=== PATIENT | female | born 1970 | race Caucasian/White ===

== ENCOUNTER → 2018-10-19 11:13 | Outpatient (CLI) | payer OTHER, SELFPAY ==
--- NOTE | 2018-10-19 | DI.MG.S_ITS ---
BILATERAL DIGITAL SCREENING MAMMOGRAM 3D/2D WITH CAD: 10/19/2018 CLINICAL: Routine screening. Family history of breast cancer. Comparison is made to exams dated: 03/01/2013 mammogram and 07/12/2004 mammogram - [facility]. The tissue of both breasts is heterogeneously dense. This may lower the sensitivity of mammography. Current study was also evaluated with a Computer Aided Detection (CAD) system. No significant masses, calcifications, or other findings are seen in either breast. There has been no significant interval change. IMPRESSION: NEGATIVE There is no mammographic evidence of malignancy. A 1 year screening mammogram is recommended. This exam was interpreted at Station ID: [id number]. NOTE: For mammograms, a report in lay terms will be sent to the patient. Approximately 15% of breast malignancies will not be visualized mammographically. In the management of a palpable breast mass, a negative mammogram must not discourage biopsy of a clinically suspicious lesion. Electronically Signed By: Antwon kelley/salma:10/19/2018 16:22:52 letter sent: Normal Exam ACR BI-RADS Category 1: Negative 3341F
== END ==
PROVIDERS: Family Provider Family Medicine; PCP Student in an Organized Health Care Education/Training Program; Visit Provider Student in an Organized Health Care Education/Training Program
DX: Z12.31 Encounter for screening mammogram for malignant neoplasm of breast (principal); Z80.3 Family history of malignant neoplasm of breast
CPT/HCPCS: 77063; 77067

== ENCOUNTER → 2019-03-11 09:10 | Outpatient (CLI) | payer OTHER, SELFPAY ==
--- NOTE | 2019-03-11 09:12 | DI.US.S_ITS ---
LIMITED ULTRASOUND OF LEFT BREAST: 03/11/2019 CLINICAL: Palpable left breast lump. Comparison is made to exams dated: 03/01/2013 mammogram, 03/01/2013, and 10/19/2018 mammogram - [facility]. Color flow and real-time ultrasound of the left breast 7-9 o'clock region were performed. Sherman scale images of the real-time examination were reviewed. There is a 1.9 cm x 2.1 cm x 0.9 cm wider than tall cluster of irregular complicated cysts with a septated, thickened internal wall in the left breast at 8 o'clock anterior depth. This cluster of irregular complicated cysts is of mixed echogenicity and may include solid components with vascular flow. These abnormalities represents a change from the prior ultrasound, where a simple cyst in this exact location was found with surrounding microcysts. This also correlates as palpated and is a location of recent trauma. IMPRESSION: PROBABLY BENIGN The 1.9 cm x 2.1 cm x 0.9 cm irregular complicated mixed cystic and possibly solid lesion in the left breast is likely a decompressed cyst, possibly hematoma with adjacent complicated cysts and is probably benign. The recent mammogram has no correlate in this location. Follow-up left mammogram and ultrasound in 3 months is recommended. Findings and recommendations were conveyed to the patient at time of exam. This exam was interpreted at Station ID: [id number]. Electronically Signed By: Marianna kaminski/:03/11/2019 11:04:26 letter sent: Followup Recommended Ultrasound BI-RADS: 3 Probably benign
== END ==
PROVIDERS: PCP Student in an Organized Health Care Education/Training Program; Visit Provider Registered Nurse
DX: N63.24 Unspecified lump in the left breast, lower inner quadrant (principal)
CPT/HCPCS: 76642

== ENCOUNTER → 2019-06-17 12:24 | Outpatient (CLI) | payer OTHER, SELFPAY ==
--- NOTE | 2019-06-17 12:27 | DI.US.S_ITS ---
LIMITED ULTRASOUND OF LEFT BREAST: 06/17/2019 CLINICAL: 3 month follow-up of complicated cyst. Comparison is made to exams dated: 06/17/2019 mammogram, 03/11/2019 ultrasound, 10/19/2018 mammogram, 03/01/2013 mammogram, 03/01/2013, and 07/12/2004 mammogram - [facility]. Color flow and real-time ultrasound of the left breast 8 o'clock region were performed. Sherman scale images of the real-time examination were reviewed. There is a 2.4 cm x 0.8 cm x 1.9 cm oval area of fibrocystic tissue in the left breast at 8 o'clock in the retroareolar region with the long axis parallel to the skin. This area of tissue displays no posterior acoustic shadowing or enhancement. This abnormality is not significantly changed. Color flow imaging demonstrates that there is no vascularity present. IMPRESSION: PROBABLY BENIGN The 2.4 cm oval area of fibrocystic tissue in the left breast is probably benign. A follow-up left ultrasound in 6 months is recommended to demonstrate stability. Findings and recommendations were conveyed to the patient at time of exam. This exam was interpreted at Station ID: [id number]. Electronically Signed By: Marianna kaminski/:06/17/2019 13:35:32 copy to: VIRIDIANA FRYE letter sent: Followup Recommended Ultrasound BI-RADS: 3 Probably benign
--- NOTE | 2019-06-17 12:27 | DI.MG.S_ITS ---
UNILATERAL LEFT DIGITAL DIAGNOSTIC MAMMOGRAM 3D/2D: 06/17/2019 CLINICAL: Short term follow up. Comparison is made to exams dated: 10/19/2018 mammogram, 03/01/2013 mammogram, and 07/12/2004 mammogram - [facility]. The tissue of left breast is heterogeneously dense. This may lower the sensitivity of mammography. No significant masses, calcifications, or other findings are seen in the breast. NO mammographic correlate to the prior sonographic abnormality. IMPRESSION: INCOMPLETE: NEEDS ADDITIONAL IMAGING EVALUATION No suspicious changes on left breast mammogram to correspond to the previously seen complicated cystic structure at 8:00. An ultrasound is recommended for reevaluation and this was performed immediately following this exam. This exam was interpreted at Station ID: [id number]. NOTE: For mammograms, a report in lay terms will be sent to the patient. Approximately 15% of breast malignancies will not be visualized mammographically. In the management of a palpable breast mass, a negative mammogram must not discourage biopsy of a clinically suspicious lesion. Electronically Signed By: Marianna kaminski/:06/17/2019 12:58:12 ACR BI-RADS Category 0: Incomplete 3340F
== END ==
PROVIDERS: PCP Student in an Organized Health Care Education/Training Program; Visit Provider Registered Nurse
DX: R92.8 Other abnormal and inconclusive findings on diagnostic imaging of breast (principal); N60.02 Solitary cyst of left breast; N60.12 Diffuse cystic mastopathy of left breast
CPT/HCPCS: 76642; 77065; G0279

== ENCOUNTER → 2019-12-25 09:13 | Outpatient (CLI) | payer OTHER, SELFPAY ==
--- NOTE | 2019-12-25 09:14 | DI.US.S_ITS ---
LIMITED ULTRASOUND OF LEFT BREAST: 12/25/2019 CLINICAL: Patient returns for short term follow-up of a probably benign mass in the left breast. Comparison is made to exams dated: 06/17/2019 ultrasound, 06/17/2019 mammogram, 03/11/2019 ultrasound, and 03/01/2013 [facility]. Color flow and real-time ultrasound of the left breast retroareolar were performed. Sherman scale images of the real-time examination were reviewed. There is a 1.7 cm x 0.7 cm x 1.4 cm (previously 2.4 x 0.8 x 1.9 cm) oval area of fibrocystic tissue in the left breast at 8 o'clock in the retroareolar region with the long axis parallel to the skin. This oval area of fibrocystic tissue displays no posterior acoustic shadowing or enhancement. This abnormality is decreased in size and correlates with ultrasound findings but was not seen on the prior mammogram. This correlates to the prior palpable abnormality in a region of prior trauma. Color flow imaging demonstrates that there is no vascularity present. IMPRESSION: PROBABLY BENIGN Interval decrease in size in the 8:00 retroareolar fibroglandular cystic area measuring 1.7 cm in the left breast. This may represent a hematoma or complicated cyst and is probably benign. Exam findings were conveyed to the patient by the tanker service attendant. A follow-up ultrasound in 6 months is recommended to demonstrate stability. Patient is due for screening mammogram at this time. This can be done at earliest patient convenience given Covid-19 pandemic and decreased availability. This exam was interpreted at Station ID: [id number]. Electronically Signed By: Reed Downey M.D. slc/:12/27/2019 09:19:29 copy to: VIRIDIANA FRYE letter sent: Followup Recommended Ultrasound BI-RADS: 3 Probably benign
== END ==
PROVIDERS: PCP Student in an Organized Health Care Education/Training Program; Referring Provider Nurse Practitioner; Visit Provider Nurse Practitioner
DX: R92.8 Other abnormal and inconclusive findings on diagnostic imaging of breast (principal); N63.24 Unspecified lump in the left breast, lower inner quadrant
CPT/HCPCS: 76642

== ENCOUNTER → 2020-06-08 18:30 | Outpatient (ROUT) | payer OTHER, SELFPAY ==
[2020-06-08 18:46] LABS: Add Manual Diff / Slide Review NO; Basophils Absolute Auto 100 /uL (0-100); Basophils Percent Auto 1.1 % (0-2); Eosinophils Absolute Auto 0 /uL (0-450); Eosinophils Percent Auto 0.8 % (2-4); Hematocrit 37.5 % (36-46); Hemoglobin 12.7 g/dL (12.0-16.0); Lymphocytes Absolute Auto 2300 /uL (1100-4500); Lymphocytes Percent Auto 37.2 % (25-40); Mean Corpuscular HGB Conc 33.9 % (30-36); Mean Corpuscular Hemoglobin 30.1 PG (26-34); Mean Corpuscular Volume 88.8 fL (80-100); Monocytes Absolute Auto 500 /uL (0-900); Neutrophils Absolute Auto 3300 /uL (1500-7000); Neutrophils Percent Auto 52.9 % (50-75); Platelet Count 216 X10^3/uL (150-400); Red Blood Cell Count 4.22 X10^6/uL (4.0-5.2); Red Cell Distribution Width 13.4 % (11.6-14.8); White Blood Cell Count 6.2 X10^3/uL (4.5-11.0)
[2020-06-08 19:18] LABS: Alanine Aminotransferase 18 IU/L (<35); Albumin 4.1 g/dL (3.5-5.0); Albumin Globulin Ratio 1.5 (1.0-2.8); Alkaline Phosphatase 51 U/L (38-126); Aspartate Aminotransferase 36 IU/L (14-36); BUN Creatinine Ratio 30.9 (6-22); Bilirubin Total 0.4 mg/dL (0.2-1.3); Blood Urea Nitrogen 25 mg/dL (7-17); C-Reactive Protein Quant 1.3 mg/dL (<1.0); Calcium 9.2 mg/dL (8.4-10.2); Carbon Dioxide 27 mmol/L (22-32); Chloride 102 mmol/L (98-107); Estimated Glomerular Filt Rate > 60.0 mL/min (>60); Globulin 2.7 g/dL (1.7-4.1); Glucose 82 mg/dL (70-100); HEMOLYSIS < 15 (0-50); Potassium 4.1 mmol/L (3.4-5.1); Sodium 138 mmol/L (137-145); Total Protein 6.8 g/dL (6.3-8.2)
[2020-06-08 20:32] LABS: Erythrocyte Sedimentation Rate 7 MM/HR (0-20)
== END ==
PROVIDERS: PCP Student in an Organized Health Care Education/Training Program; Visit Provider Physician Assistant
DX: R59.1 Generalized enlarged lymph nodes (principal)
CPT/HCPCS: 80053; 85025; 85651; 86140

== ENCOUNTER → 2020-07-09 13:24 | Outpatient (CLI) | payer OTHER, SELFPAY ==
--- NOTE | 2020-07-09 | DI.US.S_ITS ---
LIMITED ULTRASOUND OF LEFT BREAST: 07/09/2020 CLINICAL: Left breast mammography abnormality. Comparison is made to exams dated: 07/09/2020 mammogram, 12/25/2019 ultrasound, 06/17/2019 ultrasound, 06/17/2019 mammogram, 03/11/2019 ultrasound, and 10/19/2018 mammogram - [facility]. Color flow ultrasound of the left breast was performed. Sherman scale images of the real-time examination were reviewed. There is a 2.2 cm x 1.5 cm x 0.6 cm oval area of fibrocystic tissue in the left breast at 8 o'clock in the retroareolar region with the long axis parallel to the skin. This abnormality is not significantly changed and correlates with ultrasound findings but was not seen on the prior mammogram. IMPRESSION: PROBABLY BENIGN The 2.2 cm x 1.5 cm x 0.6 cm oval area of fibrocystic tissue in the left breast is probably benign. A follow-up left ultrasound in 6 months is recommended to demonstrate stability. This exam was interpreted at Station ID: [id number]. Electronically Signed By: Delano ledesma/salma:07/09/2020 15:37:49 copy to: VIRIDIANA FRYE letter sent: Followup Recommended Ultrasound BI-RADS: 3 Probably benign
--- NOTE | 2020-07-09 | DI.MG.S_ITS ---
BILATERAL DIGITAL DIAGNOSTIC MAMMOGRAM 3D/2D SHORT-TERM FOLLOW-UP: 07/09/2020 CLINICAL: Short term follow up of the left breast, due for bilateral imaging. Comparison is made to exams dated: 12/25/2019 ultrasound, 06/17/2019 ultrasound, 06/17/2019 mammogram, 03/11/2019 ultrasound, and 10/19/2018 mammogram - [facility]. The tissue of both breasts is heterogeneously dense. This may lower the sensitivity of mammography. No significant masses, calcifications, or other findings are seen in either breast. IMPRESSION: INCOMPLETE: NEEDS ADDITIONAL IMAGING EVALUATION There is no abnormality seen in the left breast to correspond with the ultrasound finding, however, ultrasound is recommended. This exam was interpreted at Station ID: [id number]. NOTE: For mammograms, a report in lay terms will be sent to the patient. Approximately 15% of breast malignancies will not be visualized mammographically. In the management of a palpable breast mass, a negative mammogram must not discourage biopsy of a clinically suspicious lesion. SUMMARY: Targeted ultrasound is recommended for further evaluation and will be scheduled immediately following this exam. Electronically Signed By: Delano ledesma/salma:07/09/2020 15:25:24 copy to: VIRIDIANA LAND BI-RADS Category 0: Incomplete 3340F
--- NOTE | 2020-07-09 | DI.US.S_ITS ---
PROCEDURE: US SOFT TISSUE HEAD AND NECK INDICATIONS: 6 MONTH F/U TECHNIQUE: Real-time scanning was performed of the neck region of interest, with image documentation. COMPARISON: None. FINDINGS: Palpable abnormality corresponds to the submandibular gland which has a normal appearance measuring 2.5 x 0.8 x 1.5 cm. IMPRESSION: Palpable abnormality corresponding to the left submandibular gland. Dictated by: David JAIME Interpreted: Sumit Brand MD on 07/09/2020 at 14:49 Approved by: Silas Brand M.D. on 07/10/2020 at 11:08
== END ==
PROVIDERS: PCP Physician Assistant; Referring Provider Physician Assistant; Visit Provider Physician Assistant
DX: R92.8 Other abnormal and inconclusive findings on diagnostic imaging of breast (principal); N60.12 Diffuse cystic mastopathy of left breast; R22.1 Localized swelling, mass and lump, neck
CPT/HCPCS: 76536; 76642; 77066; G0279

== ENCOUNTER → 2020-11-25 08:38 | Outpatient (CLI) | payer OTHER, SELFPAY ==
[2020-11-25] MEDS: COVID-19 VACC, Ad26(JANSSEN)/PF 0.5 ML IM (08:43)
== END ==
PROVIDERS: PCP Physician Assistant; Visit Provider Internal Medicine
DX: Z23 Encounter for immunization (principal)
CPT/HCPCS: 0031A; 91303

== ENCOUNTER → 2021-07-02 | Outpatient (CLI) | payer OTHER, SELFPAY ==
--- NOTE | 2021-07-02 | DI.US.S_ITS ---
LIMITED ULTRASOUND OF LEFT BREAST: 07/02/2021 CLINICAL: Patient returns today to evaluate a focal asymmetry in the left breast. Comparison is made to exams dated: 07/09/2020 ultrasound, 07/09/2020 mammogram, 12/25/2019 ultrasound, 06/17/2019 ultrasound, 06/17/2019 mammogram, and 03/11/2019 [facility]. Color flow and real-time ultrasound of the left breast 8 o'clock region were performed. Sherman scale images of the real-time examination were reviewed. There is a stable 2.1 cm x 1.6 cm x 0.6 cm wider than tall oval multicystic, partially solid mass in the left breast at 8 o'clock in the retroareolar region with the long axis parallel to the skin. No posterior shadowing. This correlates as palpated and with prior ultrasound findings. Color flow imaging demonstrates that there is vascularity present as before. IMPRESSION: BENIGN The 2.1 cm cystic mass in the left breast is in an area of a previous cyst in 2013. This has demonstrated stable size and morphology for over two years and is therefore benign. Return to annual mammogram screening schedule is recommended. The patient was instructed to return for re-evaluation if this area grows or changes. Findings and recommendations were conveyed to the patient at time of exam. This exam was interpreted at Station ID: [id number]. Electronically Signed By: Marianna kaminski/:07/02/2021 08:42:17 copy to: VIRIDIANA FRYE letter sent: Normal Exam Ultrasound BI-RADS: 2 Benign
--- NOTE | 2021-07-02 | DI.MG.S_ITS ---
BILATERAL DIGITAL SCREENING MAMMOGRAM 3D/2D WITH CAD: 07/02/2021 CLINICAL: Routine screening. Family history of breast cancer. Comparison is made to exams dated: 07/09/2020 mammogram, 10/19/2018 mammogram, and 03/01/2013 mammogram - [facility]. The tissue of both breasts is heterogeneously dense. This may lower the sensitivity of mammography. Current study was also evaluated with a Computer Aided Detection (CAD) system. No significant masses, calcifications, or other findings are seen in either breast. There has been no significant interval change. IMPRESSION: NEGATIVE There is no mammographic evidence of malignancy. A 1 year screening mammogram is recommended. This exam was interpreted at Station ID: [id number]. NOTE: For mammograms, a report in lay terms will be sent to the patient. Approximately 15% of breast malignancies will not be visualized mammographically. In the management of a palpable breast mass, a negative mammogram must not discourage biopsy of a clinically suspicious lesion. Electronically Signed By: Marianna kaminski/salma:07/02/2021 09:12:25 copy to: VIRIDIANA FRYE letter sent: Normal Exam ACR BI-RADS Category 1: Negative 3341F
== END ==
LOC: US 07:38
PROVIDERS: PCP Physician Assistant; Referring Provider Physician Assistant; Visit Provider Physician Assistant
DX: Z12.31 Encounter for screening mammogram for malignant neoplasm of breast (principal); Z80.3 Family history of malignant neoplasm of breast; N64.89 Other specified disorders of breast
CPT/HCPCS: 76642; 77063; 77067

== ENCOUNTER 2021-09-14 07:43 | Day surgery (SDC) | payer OTHER, SELFPAY ==
[2021-09-14] VITALS (7 sets, daily range): BP systolic 99–118; BP diastolic 48–82; PULSE 5–61; RESP 12–16; TEMP 36.1–37; O2SAT 97–100; BMI 24.3
[2021-09-14] MEDS: SODIUM CHLORIDE 0.9% 1,000 ML 84 ML IV (08:31)
--- NOTE | 2021-09-14 08:40 | PM.HP.1 ---
History of Present Illness History of Present Illness Date Patient Seen: 09/14/21 Time Patient Seen: 08:40 Chief complaint: SDC Narrative: Here for colon cancer screening. Asymptomatic. Patient History Medical History Skin rash Family & Social History Social History: household members spouse Tobacco & Substance use: Smoking Status Never smoker alcohol intake current alcohol intake frequency a few times a week Substance Use Type does not use Meds Home Medications and Allergies Home Medications Medication Instructions Recorded Confirmed Type CA PANTOTHENATE/FOLIC ACID/VIT 1 tab PO QDAY #0 09/14/12 09/14/21 History (MULTIVITAMIN) estradiol (Estring) 1 vaginalrin VAG [id number] 04/02/20 09/14/21 History hydroxyzine HCl 25 mg tablet 25 mg PO Q6H #30 tab 04/02/20 09/14/21 Rx triamcinolone acetonide 0.1 % 1 applic TOP TID #80 gram 04/02/20 04/02/20 Rx topical cream Allergies Allergy/AdvReac Type Severity Reaction Status Date / Time No Known Drug Allergies Allergy Verified 04/02/20 14:14 Review of Systems Review of Systems ROS: Yes All systems reviewed with the patient and are negative except as otherwise documented Exam Vital Signs (past 8 hours): - 09/14/21 08:19 Temperature 98.6 F Pulse Rate 61 Respiratory Rate 16 Blood Pressure 118/82 Pulse Oximetry 99 Oxygen Delivery Method Room Air Const General: cooperative and comfortable Orientation: alert HENMT Head: normocephalic Ears: external ears normal Nose: external nose normal Face and sinus: normal facial exam Mouth: oral mucosae normal Eyes General: appearance normal, both eyes and all related structures Neck Neck: normal visual inspection Chest Chest: normal inspection of the chest Resp Effort & Inspection: normal respiratory effort Cardio Rate: regular rate GI Inspection: normal to inspection Skin General: no rashes or lesions noted and No jaundice Neuro General: patient alert and moves all extremities Cognition: normal cognition Speech: speech normal Extrem General: no pedal edema Psych Appearance: grossly normal Assessment & Plan Assessment & Plan narrative: 51-year-old female indicated for colon cancer screening. Colonoscopy is planned for today. Time Spent With Patient Critical Care time: I spent a total of [] minutes of critical care time on this patient's care today; this time is exclusive of procedural time.
--- NOTE | 2021-09-14 08:41 | PM.PREOP ---
Pre-operative Note COVID-19 COVID-19 status: Negative Result date/Date tested (Pos, Neg/Pending): 09/14/21 Interval Note History & Physical reviewed/Exam performed by Physician: Yes Changes to H&P: No ASA Class (for procedural sedation): II
[2021-09-14 08:43] LABS: COVID19 -Nasal RAPID Negative (Negative)
--- NOTE | 2021-09-14 09:08 | P.OP.COLON_ITS ---
Operative Date/Time/Diagnoses Date of procedure: 09/14/21 Time of procedure: 09:08 Pre-op diagnosis: Indicated for colon cancer screening Post-op diagnosis: same Procedure & Clinicians Study performed: Colonoscopy Same procedure as scheduled: Yes Indications: Colon cancer screening Surgeon: Bryn Chow Procedure Notes SCOAP/Timeout: Done Procedure in detail: After the risks and benefits were explained, written and verbal informed consent was obtained. The patient was brought into the procedure room and placed into the left lateral decubitus position. Please see nurse lead dental assistant notes for sedation details. Digital rectal examination was accomplished. The scope was introduced into the patient and advanced under direct visualization to the cecum as identified by the appendiceal orifice and ileocecal valve. The scope was slowly withdrawn to carefully examine the mucosa for any defects or lesions. Comprehensive imaging was accomplished throughout the rectum including the dentate line. The colon was decompressed, the scope was then removed from the patient who tolerated the procedure well. Bowel prep adequate Pediatric colonoscope Scope withdrawal time: 7 minutes Sedation minutes: 18 Specimen(s): none sent Complications: none Impression: No significant polyps mass lesions or inflammatory features identified throughout. Endoscopic diagnosis Visually normal colonoscopy to cecum. Grade 1 internal hemorrhoids noted. Post-procedure Recommendations: Colonoscopy in 10 years Plan for aftercare: Repeat colonoscopy 10 years time; sooner should symptoms warrant an earlier exam. Disposition: PACU
== END 2021-09-14 09:41 | disposition home or self-care (01) ==
PROVIDERS: PCP Physician Assistant; Referring Provider Internal Medicine Gastroenterology; Visit Provider Internal Medicine Gastroenterology
PROC: 0DJD8ZZ Inspection of Lower Intestinal Tract, Via Natural or Artificial Opening Endoscopic (ICD-10-PCS; CPT 45378; principal; 2021-09-14 09:00)
DX: Z12.11 Encounter for screening for malignant neoplasm of colon (principal); Z20.822 Contact with and (suspected) exposure to COVID-19; K64.0 First degree hemorrhoids
CPT/HCPCS: 45378; 81025; 87635; J2704

== ENCOUNTER → 2022-07-12 07:49 | Outpatient (CLI) | payer OTHER, SELFPAY ==
--- NOTE | 2022-07-12 | DI.MG.S_ITS ---
BILATERAL DIGITAL SCREENING MAMMOGRAM 3D/2D WITH CAD: 07/12/2022 CLINICAL: Routine screening. Family history of breast cancer. Comparison is made to exams dated: 07/02/2021 mammogram, 07/09/2020 mammogram, and 10/19/2018 mammogram - [facility]. Both breasts are heterogeneously dense, which may obscure small masses (category c / 51-75% glandular tissue). Current study was also evaluated with a Computer Aided Detection (CAD) system. No significant masses, calcifications, or other findings are seen in either breast. There has been no significant interval change. IMPRESSION: NEGATIVE There is no mammographic evidence of malignancy. A 1 year screening mammogram is recommended. Based on Tyrer-Cuzick model (a risk assessment model), the patient's lifetime risk is 29.2% and her 10 year risk is 8.1%. If a patient has an elevated risk, a more comprehensive evaluation should be considered and/or a referral to a genetic counselor. The [place] [employer], [employer], and NCCN Guidelines advise the consideration of Breast MRI as an adjunct to screening mammography in patients whose Lifetime risk to develop breast cancer is 20% or higher. This exam was interpreted at Station ID: [id number]. NOTE: For mammograms, a report in lay terms will be sent to the patient. Approximately 15% of breast malignancies will not be visualized mammographically. In the management of a palpable breast mass, a negative mammogram must not discourage biopsy of a clinically suspicious lesion. Electronically Signed By: Alexei sam/salma:07/12/2022 10:13:42 copy to: VIRIDIANA FRYE letter sent: Normal Exam ACR BI-RADS Category 1: Negative 3341F
== END ==
PROVIDERS: PCP Physician Assistant; Referring Provider Physician Assistant; Visit Provider Physician Assistant
DX: Z12.31 Encounter for screening mammogram for malignant neoplasm of breast (principal); Z80.3 Family history of malignant neoplasm of breast
CPT/HCPCS: 77063; 77067

== ENCOUNTER → 2022-10-07 07:24 | Outpatient (CLI) | payer OTHER, SELFPAY ==
--- NOTE | 2022-10-07 | DI.RAD.S_ITS ---
PROCEDURE: XR KNEE RT 3V INDICATIONS: Other chronic pain TECHNIQUE: 3 views of the knee were acquired. COMPARISON: None. FINDINGS: Bones: No fractures or dislocations. No suspicious bony lesions. Moderate tricompartmental osteoarthrosis of the right knee. Soft tissues: No substantial joint effusion. No suspicious soft tissue calcifications. IMPRESSION: Right knee without acute fracture or dislocation. Moderate tricompartmental osteoarthrosis. Dictated by: Emile Robledo M.D. on 10/07/2022 at 9:29 Approved by: Emile Robledo M.D. on 10/07/2022 at 9:30
--- NOTE | 2022-10-07 | DI.RAD.S_ITS ---
PROCEDURE: XR KNEE LT 3V INDICATIONS: Other chronic pain TECHNIQUE: 3 views of the knee were acquired. COMPARISON: None. FINDINGS: Bones: No acute fractures or dislocations. No suspicious bony lesions. Moderate tricompartmental osteoarthrosis of the left knee. Soft tissues: No joint effusion. No suspicious soft tissue calcifications. IMPRESSION: Left knee without acute fracture or dislocation. Moderate tricompartmental osteoarthrosis. Dictated by: Emile Robledo M.D. on 10/07/2022 at 9:28 Approved by: Emile Robledo M.D. on 10/07/2022 at 9:29
== END ==
PROVIDERS: PCP Physician Assistant; Referring Provider Physician Assistant; Visit Provider Physician Assistant
DX: S89.91XA Unspecified injury of right lower leg, initial encounter (principal); M25.562 Pain in left knee; G89.29 Other chronic pain; M17.0 Bilateral primary osteoarthritis of knee; X58.XXXA Exposure to other specified factors, initial encounter
CPT/HCPCS: 73562

== ENCOUNTER → 2022-11-08 07:31 | Outpatient (CLI) | payer OTHER, SELFPAY ==
--- NOTE | 2022-11-08 | DI.RAD.S_ITS ---
PROCEDURE: XR KNEE RT 3V INDICATIONS: BILATERAL KNEE PAIN TECHNIQUE: 4 views of the knee were acquired. COMPARISON: [facility], CR, XR KNEE LT 3V, 10/07/2022, 7:35. FINDINGS: Bones: No fractures or dislocations. Mild tricompartmental osteoarthritis is seen most notably in medial femoral tibial compartment with joint space narrowing and subchondral sclerosis. No suspicious bony lesions. Soft tissues: No joint effusion. No suspicious soft tissue calcifications. IMPRESSION: Mild tricompartmental osteoarthritis most notably in medial femoral tibial compartment. No acute fracture or dislocation. No significant joint effusion. Dictated by: Juaquin Atkins M.D. on 11/08/2022 at 8:16 Approved by: Juaquin Atkins M.D. on 11/08/2022 at 8:17
--- NOTE | 2022-11-08 | DI.RAD.S_ITS ---
PROCEDURE: XR KNEE LT 3V INDICATIONS: BILATERAL KNEE PAIN TECHNIQUE: 4 views of the knee were acquired. COMPARISON: [facility], , XR KNEE LT 3V, 10/07/2022, 7:35. FINDINGS: Bones: No fractures or dislocations. Mild tricompartmental osteoarthritis in left knee is seen with joint space narrowing and subchondral sclerosis more notably in medial femoral tibial compartment. No suspicious bony lesions. Soft tissues: No joint effusion. No suspicious soft tissue calcifications. IMPRESSION: Mild tricompartmental osteoarthritis in left knee most notably in medial femoral tibial compartment. No fracture or dislocation. No significant joint effusion. Dictated by: Juaquin Atkins M.D. on 11/08/2022 at 8:15 Approved by: Juaquin Atkins M.D. on 11/08/2022 at 8:16
== END ==
PROVIDERS: PCP Physician Assistant; Referring Provider Orthopaedic Surgery; Visit Provider Orthopaedic Surgery
DX: M25.561 Pain in right knee (principal); M25.562 Pain in left knee; G89.29 Other chronic pain; M17.0 Bilateral primary osteoarthritis of knee
CPT/HCPCS: 73562

== ENCOUNTER → 2023-09-07 16:08 | Outpatient (CLI) | payer OTHER, SELFPAY ==
--- NOTE | 2023-09-07 | DI.MG.S_ITS ---
BILATERAL DIGITAL SCREENING MAMMOGRAM 3D/2D WITH CAD: 09/07/2023 CLINICAL: Routine screening. Family history of breast cancer. Comparison is made to exams dated: 07/12/2022 mammogram, 07/02/2021 mammogram, and 07/09/2020 mammogram - [facility]. Both breasts are heterogeneously dense, which may obscure small masses (category c / 51-75% glandular tissue). Current study was also evaluated with a Computer Aided Detection (CAD) system. No significant masses, calcifications, or other findings are seen in either breast. There has been no significant interval change. IMPRESSION: NEGATIVE There is no mammographic evidence of malignancy. A 1 year screening mammogram is recommended. Based on Tyrer-Cuzick model (a risk assessment model), the patient's lifetime risk is 31.1% and her 10 year risk is 9.1%. If a patient has an elevated risk, a more comprehensive evaluation should be considered and/or a referral to a genetic counselor. The [employer], [employer], and NCCN Guidelines advise the consideration of Breast MRI as an adjunct to screening mammography in patients whose Lifetime risk to develop breast cancer is 20% or higher. This exam was interpreted at Station ID: [id number]. NOTE: For mammograms, a report in lay terms will be sent to the patient. Approximately 15% of breast malignancies will not be visualized mammographically. In the management of a palpable breast mass, a negative mammogram must not discourage biopsy of a clinically suspicious lesion. Electronically Signed By: Silas todd/salma:09/08/2023 10:35:30 letter sent: Normal Exam ACR BI-RADS Category 1: Negative [id number]
== END ==
PROVIDERS: PCP Physician Assistant; Referring Provider Physician Assistant; Visit Provider Physician Assistant
DX: Z12.31 Encounter for screening mammogram for malignant neoplasm of breast (principal); Z80.3 Family history of malignant neoplasm of breast
CPT/HCPCS: 77063; 77067

== ENCOUNTER → 2023-11-04 09:02 | Outpatient (CLI) | payer OTHER, SELFPAY ==
--- NOTE | 2023-11-04 | DI.MRI.S_ITS ---
PROCEDURE: MR KNEE LT WO CON INDICATIONS: PAIN IN LEFT KNEE/RULE OUT LIGAMENTOUS TEARS TECHNIQUE: Noncontrast sagittal PD fast spin echo and T2 fast spin echo with fat saturation, sagittal 3-D FLASH with fat saturation; coronal T1 spin echo and PD fast spin echo with fat saturation, and axial PD fast spin echo with fat saturation through the knee. COMPARISON: [facility] [place], [place], XR KNEE 4+ VIEWS LEFT, 10/19/2023, 16:24. FINDINGS: Image quality: Excellent. Menisci: There is large horizontal tear involving the posterior horn of the medial meniscus. There is an oblique tear involving the peripheral aspect of the body of the medial meniscus involving the inferior articular surface (series 11, image 19). There is ill-defined tear in the peripheral aspect of the anterior horn of the medial meniscus (series 11, image 15). There is complex tear involving the posterior horn of the lateral meniscus (series 11, image 23). A small horizontal tear is seen in the body of the lateral meniscus. The meniscal root ligaments appear intact. Cruciate ligaments: The anterior and posterior cruciate ligaments appear intact. Medial structures: The medial collateral ligament appears intact. The semimembranosus tendon insertions and meniscocapsular junction appear intact. Visualized portions of the pes anserinus tendons appear normal. No abnormal bursal fluid. Lateral structures: The lateral collateral ligament, long and short heads of the biceps femoris tendon appear intact. The popliteus tendon appears normal. Iliotibial band appears normal. Anterior structures: The quadriceps and patellar tendons appear intact. Patellar alignment is normal. No femoral trochlear dysplasia or ventral trochlear prominence. No edema in the infrapatellar fat pad. Bones and cartilage: No bone marrow contusions or fractures. There is cartilage thinning and fibrillation, most pronounced in the medial and lateral femorotibial compartment. Joint space: There is moderate knee joint effusion. There is a tiny Merlos's cyst. Normal appearing synovial plicae are incidentally noted. There is a 0.3 cm intra-articular body in the posterior medial aspect of the intercondylar notch (series 8, image 14; series 11 image 23). IMPRESSION: 1. Medial meniscal tear as described. 2. Lateral meniscal tear as described. 3. Moderate knee joint effusion. 4. Cartilage thinning and fibrillation, most pronounced in the medial femorotibial compartment. 5. A small intra-articular body in the posterior aspect of the intercondylar notch. Dictated by: Gregg Beebe M.D. on 11/06/2023 at 9:49 Approved by: Gregg Beebe M.D. on 11/06/2023 at 10:55
== END ==
LOC: MRI 09:03
PROVIDERS: PCP Family Medicine; Referring Provider Orthopaedic Surgery Adult Reconstructive Orthopaedic Surgery; Visit Provider Orthopaedic Surgery Adult Reconstructive Orthopaedic Surgery
DX: S83.272A Complex tear of lateral meniscus, current injury, left knee, initial encounter (principal); S83.222A Peripheral tear of medial meniscus, current injury, left knee, initial encounter; M25.462 Effusion, left knee; M25.562 Pain in left knee
CPT/HCPCS: 73721

== ENCOUNTER → 2023-12-01 07:21 | Outpatient (CLI) | payer OTHER, SELFPAY ==
[2023-12-01 08:37] LABS: Add Manual Diff / Slide Review NO; Basophils Absolute Auto 100 /uL (0-100); Eosinophils Absolute Auto 100 /uL (0-450); Eosinophils Percent Auto 1.6 % (2-4); Hematocrit 38.4 % (36-46); Lymphocytes Absolute Auto 2100 /uL (1100-4500); Lymphocytes Percent Auto 35.6 % (25-40); Mean Corpuscular HGB Conc 33.9 % (30-36); Mean Corpuscular Volume 88.3 fL (80-100); Monocytes Absolute Auto 600 /uL (0-900); Monocytes Percent Auto 9.7 % (3-14); Neutrophils Absolute Auto 3100 /uL (1500-7000); Neutrophils Percent Auto 52.1 % (50-75); Platelet Count 219 X10^3/uL (150-400); Red Blood Cell Count 4.34 X10^6/uL (4.0-5.2); Red Cell Distribution Width 13.7 % (11.6-14.8); White Blood Cell Count 5.9 X10^3/uL (4.5-11.0)
[2023-12-01 08:45] LABS: BUN Creatinine Ratio 23.5 (6-22); Blood Urea Nitrogen 19 mg/dL (7-17); Calcium 9.4 mg/dL (8.4-10.2); Carbon Dioxide 31 mmol/L (22-32); Chloride 104 mmol/L (98-107); Estimated Glomerular Filt Rate > 60 mL/min (>60); Glucose 87 mg/dL (70-100); HEMOLYSIS < 15 (0-50); Potassium 4.5 mmol/L (3.4-5.1); Sodium 137 mmol/L (137-145)
[2023-12-01 08:52] LABS: Prealbumin 32.3 mg/dL (17.6-36.0)
[2023-12-01 09:53] LABS: Hemoglobin A1C% w Est Avg Glu 5.1 % (4.0-6.0)
[2023-12-01 10:02] LABS: Vitamin D 25 Hydroxy (D3) 113 ng/mL (30.0-100.0)
== END ==
LOC: LAB 07:22
PROVIDERS: PCP Family Medicine; Referring Provider Orthopaedic Surgery Adult Reconstructive Orthopaedic Surgery; Visit Provider Orthopaedic Surgery Adult Reconstructive Orthopaedic Surgery
DX: Z01.818 Encounter for other preprocedural examination (principal); R77.0 Abnormality of albumin; E55.9 Vitamin D deficiency, unspecified; Z01.812 Encounter for preprocedural laboratory examination; R73.9 Hyperglycemia, unspecified
CPT/HCPCS: 36415; 80048; 82040; 82306; 83036; 84134; 85025; 93005; 93010

== ENCOUNTER → 2023-12-16 12:23 | Outpatient (CLI) | payer OTHER, SELFPAY | PROVIDERS: PCP Family Medicine; Visit Provider Nurse Practitioner Family | DX: J02.9 Acute pharyngitis, unspecified (principal) | CPT/HCPCS: 87070 ==

== ENCOUNTER → 2024-02-27 07:10 | Outpatient (CLI) | payer OTHER, SELFPAY ==
[2024-02-27 09:22] LABS: Alanine Aminotransferase 23 IU/L (<35); Albumin 4.1 g/dL (3.5-5.0); Albumin Globulin Ratio 1.8 (1.0-2.8); Alkaline Phosphatase 55 U/L (38-126); Aspartate Aminotransferase 27 IU/L (14-36); BUN Creatinine Ratio 18.9 (6-22); Bilirubin Total 0.5 mg/dL (0.2-1.3); Blood Urea Nitrogen 18 mg/dL (7-17); Calcium 9.5 mg/dL (8.4-10.2); Carbon Dioxide 30 mmol/L (22-32); Chloride 105 mmol/L (98-107); Cholesterol 244 mg/dL (140-199); Estimated Glomerular Filt Rate > 60 mL/min (>60); Globulin 2.3 g/dL (1.7-4.1); Glucose 94 mg/dL (70-100); HDL Cholesterol 67 mg/dL (40-60); HEMOLYSIS < 15 (0-50); LDL Cholesterol Calculated 158 mg/dL (<100); Potassium 5.3 mmol/L (3.4-5.1); Sodium 141 mmol/L (137-145); Total Protein 6.4 g/dL (6.3-8.2); Triglycerides 97 mg/dL (35-150)
== END ==
PROVIDERS: PCP Family Medicine; Referring Provider Family Medicine; Visit Provider Family Medicine
DX: Z13.6 Encounter for screening for cardiovascular disorders (principal); E78.2 Mixed hyperlipidemia
CPT/HCPCS: 36415; 80053; 80061

== ENCOUNTER → 2024-06-19 07:11 | Outpatient (CLI) | payer OTHER, SELFPAY | PROVIDERS: PCP Family Medicine; Referring Provider Nurse Practitioner Family; Visit Provider Nurse Practitioner Family | DX: R30.0 Dysuria (principal) | CPT/HCPCS: 87077; 87086 ==

== ENCOUNTER → 2024-08-26 07:08 | Outpatient (CLI) | payer OTHER, SELFPAY ==
[2024-08-26 08:27] LABS: Add Manual Diff / Slide Review NO; Basophils Absolute Auto 0 /uL (0-100); Basophils Percent Auto 0.5 % (0-2); Eosinophils Absolute Auto 100 /uL (0-450); Eosinophils Percent Auto 0.8 % (2-4); Hematocrit 40.3 % (36-46); Hemoglobin 13.6 g/dL (12.0-16.0); Lymphocytes Absolute Auto 1400 /uL (1100-4500); Lymphocytes Percent Auto 21.1 % (25-40); Mean Corpuscular HGB Conc 33.7 % (30-36); Mean Corpuscular Hemoglobin 29.3 PG (26-34); Mean Corpuscular Volume 87.1 fL (80-100); Monocytes Absolute Auto 500 /uL (0-900); Monocytes Percent Auto 7.7 % (3-14); Neutrophils Absolute Auto 4700 /uL (1500-7000); Neutrophils Percent Auto 69.9 % (50-75); Platelet Count 198 X10^3/uL (150-400); Red Blood Cell Count 4.62 X10^6/uL (4.0-5.2); Red Cell Distribution Width 14.2 % (11.6-14.8); White Blood Cell Count 6.7 X10^3/uL (4.5-11.0)
[2024-08-26 08:52] LABS: Alanine Aminotransferase 21 IU/L (<35); Albumin 4.1 g/dL (3.5-5.0); Albumin Globulin Ratio 1.6 (1.0-2.8); Alkaline Phosphatase 50 U/L (38-126); Aspartate Aminotransferase 31 IU/L (14-36); BUN Creatinine Ratio 24.2 (6-22); Bilirubin Total 0.5 mg/dL (0.2-1.3); Blood Urea Nitrogen 24 mg/dL (7-17); Calcium 9.6 mg/dL (8.4-10.2); Carbon Dioxide 28 mmol/L (22-32); Chloride 104 mmol/L (98-107); Cholesterol 251 mg/dL (140-199); Estimated Glomerular Filt Rate > 60 mL/min (>60); Globulin 2.6 g/dL (1.7-4.1); Glucose 86 mg/dL (70-100); HDL Cholesterol 68 mg/dL (40-60); HEMOLYSIS < 15 (0-50); LDL Cholesterol Calculated 164 mg/dL (<100); Potassium 4.5 mmol/L (3.4-5.1); Sodium 135 mmol/L (137-145); Total Protein 6.7 g/dL (6.3-8.2); Triglycerides 94 mg/dL (35-150)
== END ==
PROVIDERS: PCP Family Medicine; Referring Provider Family Medicine; Visit Provider Family Medicine
DX: E78.5 Hyperlipidemia, unspecified (principal); Z13.6 Encounter for screening for cardiovascular disorders
CPT/HCPCS: 36415; 80053; 80061; 85025

== ENCOUNTER → 2024-09-27 08:07 | Outpatient (CLI) | payer BC, SELFPAY ==
--- NOTE | 2024-09-27 08:09 | DI.MG.S_ITS ---
BILATERAL DIGITAL SCREENING MAMMOGRAM 3D/2D WITH CAD: 09/27/2024 CLINICAL: Routine screening. Family history of breast cancer. Comparison is made to exams dated: 09/07/2023 mammogram, 07/12/2022 mammogram, and 07/02/2021 mammogram - [facility]. The breasts are heterogeneously dense, which may obscure small masses (category c / 51-75% glandular tissue). Current study was also evaluated with a Computer Aided Detection (CAD) system. No significant masses, calcifications, or other findings are seen in either breast. There has been no significant interval change. IMPRESSION: NEGATIVE There is no mammographic evidence of malignancy. A 1 year screening mammogram is recommended. Based on Tyrer-Cuzick model (a risk assessment model), the patient's lifetime risk is 31.5% and her 10 year risk is 9.8%. If a patient has an elevated risk, a more comprehensive evaluation should be considered and/or a referral to a genetic counselor. The [place] [employer], [place] [employer], and NCCN Guidelines advise the consideration of Breast MRI as an adjunct to screening mammography in patients whose Lifetime risk to develop breast cancer is 20% or higher. This exam was interpreted at Station ID: [id number]. NOTE: For mammograms, a report in lay terms will be sent to the patient. Approximately 15% of breast malignancies will not be visualized mammographically. In the management of a palpable breast mass, a negative mammogram must not discourage biopsy of a clinically suspicious lesion. Electronically Signed By: Emile chapa/salma:09/27/2024 19:54:27 letter sent: Normal Exam ACR BI-RADS Category 1: Negative
== END ==
PROVIDERS: PCP Family Medicine; Referring Provider Family Medicine; Visit Provider Family Medicine
DX: Z12.31 Encounter for screening mammogram for malignant neoplasm of breast (principal); Z80.3 Family history of malignant neoplasm of breast; R92.333 Mammographic heterogeneous density, bilateral breasts
CPT/HCPCS: 77063; 77067

== ENCOUNTER → 2024-10-14 08:18 | Outpatient (CLI) | payer BC, SELFPAY | PROVIDERS: PCP Family Medicine; Referring Provider Nurse Practitioner Family; Visit Provider Nurse Practitioner Family | DX: R30.0 Dysuria (principal) | CPT/HCPCS: 87077; 87086; 87186 ==

== ENCOUNTER → 2024-10-25 11:09 | Outpatient (CLI) | payer BC, SELFPAY | PROVIDERS: PCP Family Medicine; Visit Provider Family Medicine | DX: R30.0 Dysuria (principal) | CPT/HCPCS: 87086 ==

== ENCOUNTER → 2024-12-13 07:30 | Outpatient (CLI) | payer BC, SELFPAY ==
--- NOTE | 2024-12-13 07:31 | DI.MRI.S_ITS ---
MR breast BI wo/w con: 12/13/2024. BI-RADS: 1 CLINICAL: 54-year old female for bilateral diagnostic breast MRI. High-Risk Screening MRI. Current reported family history of breast cancer: maternal grandmother, mother and brother. PRIOR EXAMS 09/27/2024, 09/07/2023, 07/12/2022, 07/02/2021, 07/09/2020, 12/25/2019, 06/17/2019, 03/11/2019, 10/19/2018. MRI TECHNIQUE Bilateral breast MRI was performed on a 1.5 Jodi magnet using a dedicated breast coil with mild compression. Axial T1 and T2 STIR sequences were obtained. Dynamic contrast enhanced VIBRANT fat-suppressed sequences were obtained. Delayed sagittal high resolution or sagittal reconstructed isotropic sequence was also obtained. Subtraction images and maximum intensity projection images were obtained. The study was evaluated using [employer] User [place] software. IV Contrast: 20 ml ProHance. FIBROGLANDULAR TISSUE Bilateral: C. Heterogeneous fibroglandular tissue. BACKGROUND PARENCHYMAL ENHANCEMENT Bilateral: Minimal symmetrical background parenchymal enhancement. BREAST FINDINGS Bilateral There are no abnormal axillary or internal mammary lymph nodes. No suspicious mass, suspicious non-mass enhancement, or other concerning finding identified. IMPRESSION: * No evidence of malignancy. RECOMMENDATIONS Bilateral * According to the Tyrer-Cuzick Risk Assessment Model, based on the information provided your patient has a greater than 20% lifetime risk for developing breast cancer. Consider supplemental screening with breast MRI and participation in a high risk screening program. * Annual screening mammography. OVERALL ASSESSMENT CATEGORY BI-RADS-1: Negative. ELECTRONICALLY SIGNED: Alisa Wise M.D. on 12/13/2024 at 09:28:53 PM PT Interpreting Station ID: [id number]
== END ==
PROVIDERS: PCP Family Medicine; Referring Provider Family Medicine; Visit Provider Family Medicine
DX: R92.333 Mammographic heterogeneous density, bilateral breasts (principal); Z80.3 Family history of malignant neoplasm of breast
CPT/HCPCS: 77049; A9579

== ENCOUNTER → 2025-04-21 07:12 | Outpatient (CLI) | payer BC, SELFPAY ==
[2025-04-21 09:24] LABS: Creatine Kinase 70 U/L (30-135)
[2025-04-21 09:47] LABS: Follicle Stimulating Hormone 7.07 mIU/mL
== END ==
PROVIDERS: PCP Family Medicine; Referring Provider Family Medicine; Visit Provider Family Medicine
DX: M25.50 Pain in unspecified joint (principal); N92.6 Irregular menstruation, unspecified; Z87.898 Personal history of other specified conditions; N95.1 Menopausal and female climacteric states
CPT/HCPCS: 36415; 82397; 82550; 82672; 83001; 83002; 84144; 84999; 85651; 86038; 86140